=== PATIENT | female | born 1985 | race Caucasian/White ===

== ENCOUNTER 2019-04-04 08:37 | Inpatient (IN) | payer OTHER ==
[2019-04-04] MEDS ORDERED: Promethazine HCl 25 MG/ML VIAL IM PRN ×2 (08:43→10:10)
[2019-04-04] MEDS ORDERED: hydrALAZINE 20 MG/ML VIAL SLOW IVP PRN ×2 (08:43→11:06)
[2019-04-04] MEDS ORDERED: Ondansetron PF 4 MG/2 ML Vial IVP PRN ×3 (08:43→11:06)
[2019-04-04] MEDS ORDERED: Lactated Ringer's 1,000 ML IV SCH ×2 (08:45→13:15)
[2019-04-04] MEDS ORDERED: Bicitra 30 ML UDCUP PO SCH (08:45)
[2019-04-04] MEDS ORDERED: CEFAZOLIN 2 GM in Premix Bag 1 BAG IVPB SCH (08:45)
[2019-04-04] MEDS ORDERED: Bicitra 30 ML UDCUP ONE (08:49)
[2019-04-04 08:53] VITALS: BMI 39.3
[2019-04-04 09:10] LABS: Hemoglobin 12.7 g/dL (12.0-16.0); Mean Corpuscular HGB CONC 35.1 g/dL (32.0-36.0); Mean Corpuscular Hemoglobin 30.3 pg (27.0-31.0); Mean Corpuscular Volume 86.1 fL (78.0-98.0); Mean Platelet Volume 7.4 fL (7.4-10.4); Platelet Count 361 thou/uL (130-400); RBC Distribution Width 12.3 % (11.5-14.5); Red Blood Cell (RBC) Count 4.21 mill/uL (4.20-5.40); White Blood Cell (WBC) Count 9.5 thou/uL (4.8-10.8)
[2019-04-04] MEDS ORDERED: Oxytocin 10 UNITS/ML VIAL ONE (09:22)
[2019-04-04] MEDS ORDERED: Ondansetron PF 4 MG/2 ML Vial ONE (09:22)
[2019-04-04] MEDS ORDERED: ePHEDrine/0.9% NaCl/PF SYRINGE 50 mg/10 ml ONE (09:22)
[2019-04-04] MEDS ORDERED: MORPHINE 5 MG/10 ML PF VIAL ONE (09:22)
[2019-04-04] MEDS ORDERED: Dexamethasone 4 mg/ml Vial ONE (09:22)
[2019-04-04] MEDS ORDERED: Fentanyl 100 MCG/2 ML VIAL ONE (09:22)
[2019-04-04] MEDS ORDERED: PHENYLEPHRINE-NS 100 MCG/ML 10 ML SYRINGE ONE ×2 (09:22→10:15)
[2019-04-04 09:48] LABS: Syphilis Antibody Nonreactive (Nonreactive); Syphilis Antibody Index 0.18 S/CO (<1.00 Non-Reactive)
[2019-04-04 09:52] LABS: HBSAg Index 0.17 S/CO (0-0.99); Hep B Surf Ag Non-Reactive S/CO (NonReactive)
[2019-04-04] MEDS ORDERED: Morphine 2 MG/ML SYRINGE SLOW IVP PRN ×2 (10:10→10:26)
[2019-04-04] MEDS ORDERED: Naloxone HCl 0.4 mg/ml Vial IV PRN (10:10)
[2019-04-04] MEDS ORDERED: Ondansetron HCl/PF 4 MG/2 ML Vial IVP PRN (10:10)
[2019-04-04] MEDS ORDERED: diphenhydrAMINE 50 MG/ML VIAL IVP PRN (10:10)
[2019-04-04] MEDS ORDERED: Meperidine HCl/PF 25 MG/ML VIAL SLOW IVP PRN (10:10)
[2019-04-04] MEDS ORDERED: HYDROmorphone 2 MG/ML VIAL SLOW IVP PRN (10:10)
[2019-04-04] MEDS ORDERED: Naloxone HCl 0.4 mg/ml Vial IVP PRN ×2 (10:10)
[2019-04-04] MEDS ORDERED: L&D-Morphine 4 MG/ML VIAL SLOW IVP PRN (10:10)
[2019-04-04] MEDS ORDERED: Promethazine HCl 25 MG SUPP PR PRN (10:10)
[2019-04-04] MEDS ORDERED: Communication Order-Pharmacy FS SCH (10:15)
[2019-04-04] MEDS ORDERED: Ketorolac Tromethamine 30 MG/ML VIAL IVP SCH (10:15)
[2019-04-04] MEDS ORDERED: Lanolin Ointment 7 GM TUBE TOP PRN (11:06)
[2019-04-04] MEDS ORDERED: Simethicone Chewable 80 MG TAB PO PRN (11:06)
[2019-04-04] MEDS: Lactated Ringer's 1,000 ML IV SCH (14:00)
[2019-04-04] MEDS: Ketorolac Tromethamine 30 MG/ML VIAL IVP SCH ×2 (14:01→18:10)
[2019-04-04] MEDS: Ferrous Sulfate 325 MG TAB PO SCH (17:35)
[2019-04-05] MEDS: Ketorolac Tromethamine 30 MG/ML VIAL IVP SCH ×3 (00:30→19:37)
[2019-04-05] MEDS: Lactated Ringer's 1,000 ML IV SCH ×5 (00:31→21:54)
[2019-04-05 06:23] LABS: Hemoglobin 9.9 g/dL (12.0-16.0); Mean Corpuscular HGB CONC 34.5 g/dL (32.0-36.0); Mean Corpuscular Hemoglobin 30.3 pg (27.0-31.0); Mean Corpuscular Volume 87.6 fL (78.0-98.0); Mean Platelet Volume 7.5 fL (7.4-10.4); Platelet Count 298 thou/uL (130-400); RBC Distribution Width 12.4 % (11.5-14.5); Red Blood Cell (RBC) Count 3.27 mill/uL (4.20-5.40); White Blood Cell (WBC) Count 8.4 thou/uL (4.8-10.8)
[2019-04-05] MEDS ORDERED: Adacel (T-DAP) 0.5 ML SYRINGE IM ONE (09:00)
[2019-04-05] MEDS: Prenatal Vitamin 1 TAB PO SCH (11:32)
[2019-04-05] MEDS: Docusate 100 MG CAP PO PRN ×2 (11:32→21:49)
[2019-04-05] MEDS: Ferrous Sulfate 325 MG TAB PO SCH ×2 (11:37→18:18)
[2019-04-05] MEDS: HYDROcodone/Acetaminophen 5/325 mg Tablet PO PRN ×3 (13:13→22:58)
[2019-04-05] MEDS: Ibuprofen 800 MG TAB PO SCH ×2 (13:16→21:49)
[2019-04-05] MEDS ORDERED: Ibuprofen 800 MG TAB PO SCH (22:00)
[2019-04-06] MEDS: HYDROcodone/Acetaminophen 5/325 mg Tablet PO PRN ×4 (03:45→18:37)
[2019-04-06] MEDS: Ibuprofen 800 MG TAB PO SCH ×2 (05:48→13:31)
[2019-04-06 07:45] VITALS: BP 112/68; TEMP 97.7
[2019-04-06] MEDS: Ferrous Sulfate 325 MG TAB PO SCH ×2 (08:24→17:23)
[2019-04-06] MEDS: Prenatal Vitamin 1 TAB PO SCH (08:25)
[2019-04-06] MEDS: Docusate 100 MG CAP PO PRN (08:26)
[2019-04-06] MEDS: Lactated Ringer's 1,000 ML IV SCH (12:29)
--- NOTE | 2019-04-10 18:23 | DN ---
DATE OF PROCEDURE: 04/04/2019 PREOPERATIVE DIAGNOSES: 1. A 34-year-old multiparous at 37 weeks and 5 days, in active labor with intact membranes. 2. Group B Streptococcus positive. 3. History of a low-transverse section for history of a previous fourth-degree in her first . Desires a repeat . POSTOPERATIVE DIAGNOSES: 1. A 34-year-old multiparous at 37 weeks and 5 days, in active labor with intact membranes. 2. Group B Streptococcus positive. 3. History of a low-transverse section for history of a previous fourth-degree in her first . Desires a repeat . 4. Live-born with Apgars of 9 and 9 at 1 and 5 minutes respectively. ESTIMATED BLOOD LOSS: 400 mL. CLINICAL HISTORY: This patient is a 34-year-old female, G3, P2-0-0-2, who presented to the office for her work-in appointment given she felt lots of pressure and regular contractions. She was checked and noted to be 5 cm, 80% effaced and 0 station with intact membranes. She was sent directly to the hospital for a repeat as she desired to avoid a vaginal delivery. Her first vaginal delivery resulted in a fourth-degree laceration and so her subsequent was a primary low-transverse section. She had been consented for a repeat . The risks, benefits, and possible complications as well as alternatives were discussed. The patient was admitted and taken to the operating room. DESCRIPTION OF PROCEDURE: The patient was taken to the operating room, where spinal anesthesia was obtained. She was laid in the supine position with a leftward tilt and prepped and draped in the usual sterile fashion. After testing for adequate anesthesia, an incision was made in the lower abdomen over the previous incision and this was carried down to the fascia. The fascia was nicked in the midline and then extended out bilaterally. The Janet clamps x2 were used to elevate the rectus muscles off the fascia. In similar fashion, the inferior rectus muscles were liberated and the rectus muscles were then in the midline. The peritoneum was then breeched and extended with a combination of sharp and blunt dissection. The bladder blade was placed and the anterior surface of the uterus was identified. The bladder flap was then created with Turkmen forceps and Metzenbaum scissors, and the bladder was reflected down lower. An incision was then made over the uterus in the lower uterine segment down to the layer of the amnion. An amniotomy was performed and clear fluid was noted. The surgeon's hand was then placed into the incision and the vertex was delivered through the incision. The head was delivered, followed by the anterior shoulder, followed by the posterior shoulder, and then the remainder of the infant's body was delivered. The cried spontaneously and vigorously. The cord was doubly clamped and then cut, and the infant was taken over to the neonatology team in attendance to the delivery. Cord blood was then obtained and the placenta was delivered manually intact with a three-vessel cord. The uterus was then exteriorized and cleansed of all debris, and the incision was closed in a running locking fashion with excellent hemostasis. A second imbricating closure was performed and the bladder flap was then reapproximated over this closure with excellent hemostasis. The gutters were cleansed of all debris and then Seprafilm x4 was placed over this anterior surface of the uterus. The uterus was then placed back into the abdomen and two Janet clamps were used to elevate the rectus fascia, and two Christine clamps were used to identify the peritoneum. The peritoneum was then reapproximated in a running fashion and the rectus muscles were brought together with interrupted [id number] sutures with excellent hemostasis. The gutters were cleansed of all debris and the fascia was closed in a running fashion with irrigation of the subcutaneous tissues and Bovie cautery for correction of the bleeding. The 2-0 plain gut interrupted sutures were used to build back the subcutaneous tissues in layers and the skin was closed in a running fashion with a 3-0 David needle and reinforced with Steri-Strips and Mastisol. The patient tolerated the procedure well and the incision was dressed with a Telfa and Tegaderms with 4x4s overlying. All needle, sponge, lap, and instrument counts were correct x2 at the end of the procedure. There were no other issues surrounding this delivery. Job ID: [id number]
== END 2019-04-06 18:57 | disposition home or self-care (01) | DRG 788 ==
LOC: L&D 08:37 → 3SE 13:38
PROVIDERS: ADMIT Obstetrics & Gynecology; ATTEND Obstetrics & Gynecology
PROC: 10D00Z1 Extraction of Products of Conception, Low, Open Approach (ICD-10-PCS; principal; 2019-04-04)
PROC: 3E0234Z Introduction of Serum, Toxoid and Vaccine into Muscle, Percutaneous Approach (ICD-10-PCS; 2019-04-04)
DX: O34.211 Maternal care for low transverse scar from previous cesarean delivery (principal); O99.824 Streptococcus B carrier state complicating childbirth; Z88.5 Allergy status to narcotic agent; Z3A.37 37 weeks gestation of pregnancy; Z37.0 Single live birth; Z23 Encounter for immunization
CPT/HCPCS: 36415; 51702; 85027; 86780; 86850; 86870; 86900; 86901; 87340; J0690; J1100; J1200; J1885; J2274; J2405; J2590; J3010

== ENCOUNTER 2021-06-29 07:14 | Emergency (ER) | payer OTHER ==
[2021-06-29] MEDS ORDERED: Dexamethasone 10 MG/ML VIAL ONE (07:54)
[2021-06-29] MEDS ORDERED: Ketorolac Tromethamine 30 MG/ML VIAL ONE (07:54)
== END 2021-06-29 08:42 | disposition home or self-care (01) ==
LOC: ERS 07:14
DX: M54.41 Lumbago with sciatica, right side (principal)
CPT/HCPCS: 96372; 99283; J1100; J1885